=== PATIENT | female | born 1940 | race Caucasian/White ===

== ENCOUNTER 2021-06-08 07:58 | Day surgery (SDC) | payer MEDICARE, MEDICAID ==
[~2021-06-08] VITALS: Ht 152.4 cm; Wt 39.5 kg
--- NOTE | 2021-06-08 07:47 | PDOC1 ---
History and Physical Date of Admission Date of Admission DATE: 06/08/21 TIME: 07:44 Identification/Chief Complaint Chief Complaint Abdominal pain right upper quadrant Source Source: Chart review, Patient History of Present Illness History of Present Illness 81-year-old female with complaints of epigastric and abdominal pain right upper quadrant usually worse after eating occasionally nausea. Recent CT scan showed gallbladder polyp with small stones HIDA scan showed ejection fraction of only 8% Past Medical History Cardiovascular: No pertinent hx Pulmonary: No pertinent hx GI: Diverticulosis, GERD Hepatobiliary: No pertinent hx Psych: Anxiety Musculoskeletal: Osteoarthritis Rheumatologic: No pertinent hx Infectious disease: No pertinent hx ENT: No pertinent hx Renal/: No pertinent hx Endocrine: No pertinent hx, Hypothyroidism Dermatology: No pertinent hx Past Surgical History Past Surgical History: Cataract Removal Family History Family History: No Significant Social History Smoke: No ALCOHOL: none Drugs: None Current Medications Current Medications Current Medications Fentanyl Citrate (Fentanyl 2ml Vial) 25 mcg PRN Q5MIN PRN IVP MILD PAIN 1-3; Start 06/08/21 at 06:00; Stop 06/09/21 at 05:59 Fentanyl Citrate (Fentanyl 2ml Vial) 50 mcg PRN Q5MIN PRN IVP MODERATE PAIN 4- 6; Start 06/08/21 at 06:00; Stop 06/09/21 at 05:59 Morphine Sulfate (Morphine Sulfate) 1 mg PRN Q10MIN PRN IVP SEVERE PAIN 7-10; Start 06/08/21 at 06:00; Stop 06/09/21 at 05:59 Ringer's Solution 1,000 ml @ 30 mls/hr Q24H IV ; Start 06/08/21 at 06:00; Stop 06/08/21 at 17:59 Hydromorphone HCl (Dilaudid) 0.5 mg PRN Q10MIN PRN IVP SEVERE PAIN 7-10, 2nd CHOICE; Start 06/08/21 at 06:00; Stop 06/09/21 at 05:59 Prochlorperazine Edisylate (Compazine) 5 mg PACU PRN PRN IVP NAUSEA, MRX1; Start 06/08/21 at 06:00; Stop 06/09/21 at 05:59 Acetaminophen (Tylenol) 1,000 mg 1X PREOP PRN PO PRIOR TO PROCEDURE; Start 06/08/21 at 06:00 Cefazolin Sodium (Ancef) 1 gm 1X PREOP PRN IVP PRIOR TO PROCEDURE; Start 06/08/21 at 08:00 Allergies Allergies: Coded Allergies: No Known Drug Allergies (Unverified , 06/06/21) ROS Gastrointestinal: Yes Nausea, Yes Abdominal Pain Physical Exam General: Alert, Oriented X3, Cooperative, No acute distress HEENT: Atraumatic, EOMI Lungs: Clear to auscultation, Normal air movement Heart: RRR, no murmurs Abdomen: Normal bowel sounds, Soft, Other (Tender to palpation right upper) Rectal Exam: not examined Extremities: No edema Skin: No significant lesion Neuro: Normal speech Psych/Mental Status: Mental status NL VTE Prophylaxis Ordered VTE Prophylaxis Devices: Yes VTE Pharmacological Prophylaxi: Contraindicated Assessment/Plan Assessment/Plan Gallbladder polyps with low ejection fraction biliary dyskinesia plan laparoscopic cholecystectomy Justifications for Admission Other Justification MANDI DIALLO MD Jun 08, 2021 07:47
[~2021-06-08 07:58] MED LIST: ACETAMINOPHEN 500 MG TABLET PO PRN; HYDROmorphone 2 MG/ML INJ. IVP PRN; IV RINGERS,LACTATED 1000ML 1,000 ML IV SCH; PROCHLORPERAZINE 10 MG/2 ML VIAL. IVP PRN; fentaNYL PF VIAL 100 MCG/2 ML VIAL IVP PRN
[2021-06-08] MEDS ORDERED: ceFAZolin SODIUM IV Push 1 GM VIAL. IVP PRN (08:00)
[2021-06-08] MEDS ORDERED: SUGAMMADEX SODIUM 200 MG/2 ML VIAL. IVP ONE (08:15)
--- NOTE | 2021-06-08 08:35 | PDOC4 ---
Operative Note Operative Note Date: 06/08/2021 at 8:32 AM Preoperative diagnosis: Biliary dyskinesia Postoperative diagnosis: Same Procedure: Laparoscopic cholecystectomy with fluorescent cholangiography Surgeon: Brijesh Specimen: Gallbladder Dictation: Patient is 81-year-old female with right upper quadrant abdominal pain CT scan showing gallbladder polyp with some stones as well as a HIDA scan showed ejection fraction of only 8%. Procedure of laparoscopic cholecystectomy was explained to the patient in detail risk-benefit were also discussed including bleeding infection injury to intra-abdominal contents possible necessitating further open operations alternatives to this procedure also discussed with the patient who seemed to understand and gave both verbal and written consent to have the procedure performed. Patient was taken to the operating room placed in the supine position general anesthesia was initiated once patient was sleeping intubated her abdomen was prepped and draped usual sterile fashion using ChloraPrep. An area just below the umbilicus was injected with quarter percent Marcaine with epinephrine incision was made 11 blade scalpel and a varies needle was placed within the abdomen creating pneumoperitoneum once this was complete the millimeter port was placed and a 5 mm camera was placed within the abdomen which was inspected no other abnorm alities were noted. 5 mm ports placed in the epigastrium and 5 mm ports placed in the right midabdomen a 5 mm port was placed in the right lateral abdomen all under direct visualization. The dome of the gallbladder is grasped retracted cephalad the infundibulum the gallbladder is grasped tract laterally exposing the triangle adherent tissues the triangle were taken down exposing the cystic duct and cystic artery. Fluorescein cholangiography was performed which showed good dye within the cystic duct common bile duct with no evidence of obstruction. The cystic duct was doubly clipped and transected the cystic artery was similarly clipped and transected the gallbladder is taken off the liver with hook electrocautery placed in Endo Catch bag moved umbilicus right upper quadrant was irrigated and suctioned dry hemostasis deemed be appropriate the pneumoperitoneum was reduced all ports were removed the fascial defect at the umbilicus was closed with a [id number] 0 Vicryl suture and the skin was reapproximated all port sites for septic and Monocryl Mastisol Steri-Strips and island dressings were applied. Patient was awakened and extubated in the operating room taken to recovery in stable condition all sponge instrument needle counts listed as correct estimated blood loss 5 mL MANDI DIALLO MD Jun 08, 2021 08:35
[2021-06-08] MEDS ORDERED: OXYC-325 PO (08:37)
--- NOTE | 2021-06-08 08:38 | DISCH ---
DISCHARGE INSTRUCTIONS Condition on Discharge Condition on Discharge: Stable Activity After Discharge Activity Instructions for Disc: Avoid exertion Other activity instructions: No lifting more than 20 pounds for 2 weeks Diet after Discharge Diet after Discharge: Low Fat Wound Incision Care Other wound/incision instructi: May shower in 24 hours Contacting the after DC Call your doctor for: If your condition worsens Follow-Up Follow up with: Dr. Diallo in 2 weeks MANDI DIALLO MD Jun 08, 2021 08:38
[2021-06-08] MEDS: fentaNYL PF VIAL 100 MCG/2 ML VIAL IVP PRN ×3 (08:53→09:16)
[2021-06-08] MEDS ORDERED: KETOROLAC 30 MG/ML VIAL. IVP ONE (09:15)
[2021-06-08] MEDS ORDERED: oxyCODONE/APAP 5/325 1 TAB TABLET PO ONE (09:30)
[2021-06-08] MEDS: MORPHINE SULFATE 2 MG/ML INJ. IVP PRN ×2 (09:36→09:58)
[2021-06-08 09:38] VITALS: BP 127/39
--- NOTE | 2021-06-11 18:06 | PATHOLOGY ---
[facility] Accession Number: [id number] . 01 Material submitted: . gallbladder - GALLBLADDER AND CONTENTS . 01 Clinical history: . BILIARY DYSKINESIA LAP ALVIN . 02 Diagnosis: Gallbladder, laparoscopic cholecystectomy: - Chronic cholecystitis. (JPM:zacarias; 06/11/2021) P 06/11/2021 1212 Local . 02 Comment: There are no calculi identified within the gallbladder lumen or specimen container. There is no evidence of malignancy. (JPM:zacarias; 06/11/2021) . 02 Electronically signed: . Jj Gar MD, Pathologist NPI- [id number] . 01 Gross description: . Fixative: Formalin Labeled: Gallbladder Specimen received: Previously disrupted gallbladder Dimensions: 5.5 x 2.3 x 2.2 cm Serosa: Green-dennis, smooth Lymph node: Not identified Mucosa: Velvety, bile-stained Average wall thickness: 0.2 cm Calculi: None present Abnormalities: None identified . A1- Salesperson Neckties body, fundus, and the cystic duct margin. ([facility]; 06/08/2021) NRI/NRI 06/08/2021 1822 Local . 02 Pathologist provided ICD-10: K81.1 . 02 CPT . 491244 Specimen Comment: A courtesy copy of this report has been sent to [phone], [phone] Specimen Comment: [id number] Specimen Comment: Report sent to / DR RAMACHANDRAN Performed at: 01 [facility] [address], [place] [id number] MD Remy Tillman MD Phone: [phone] Performed at: 02 [facility] [address] [place], [place] [id number] MD Jj Gar MD Phone: [phone]
== END 2021-06-08 10:45 | disposition home or self-care (01) ==
LOC: SURG 07:58
PROVIDERS: ATTEND Surgery
DX: K81.1 Chronic cholecystitis (principal); K82.8 Other specified diseases of gallbladder; K21.9 Gastro-esophageal reflux disease without esophagitis; M19.90 Unspecified osteoarthritis, unspecified site; E03.9 Hypothyroidism, unspecified; F41.9 Anxiety disorder, unspecified; Z87.891 Personal history of nicotine dependence; Z79.899 Other long term (current) drug therapy; Z98.890 Other specified postprocedural states
CPT/HCPCS: 47563; J3490; A4657; A4930

== ENCOUNTER 2021-06-10 01:43 | Inpatient (IN) | payer MEDICARE, MEDICAID ==
[2021-06-10] VITALS (7 sets, daily range): BP systolic 117–139; BP diastolic 52–64
[~2021-06-10] VITALS: Ht 152.4 cm; Wt 38.5 kg
[~2021-06-10 01:43] MED LIST changes: -ACETAMINOPHEN 500 MG TABLET PO PRN; -HYDROmorphone 2 MG/ML INJ. IVP PRN; -IV RINGERS,LACTATED 1000ML 1,000 ML IV SCH; +OXYC-325 PO; -PROCHLORPERAZINE 10 MG/2 ML VIAL. IVP PRN; -fentaNYL PF VIAL 100 MCG/2 ML VIAL IVP PRN
[2021-06-10] MEDS ORDERED: LIOT5TAB4 PO (02:27)
[2021-06-10] MEDS ORDERED: LEVO50TA5 PO (02:27)
[2021-06-10] MEDS ORDERED: Vitamin D3 PO (02:27)
[2021-06-10] MEDS ORDERED: BISACODYL 10 MG SUPP.RECT. PR PRN (03:00)
[2021-06-10] MEDS ORDERED: IV RINGERS,LACTATED 1000ML 1,000 ML IV SCH (03:00)
[2021-06-10] MEDS ORDERED: ACETAMINOPHEN 650 MG SUPP.RECT. PR PRN (03:00)
[2021-06-10] MEDS ORDERED: fentaNYL PF VIAL 100 MCG/2 ML VIAL IVP PRN (03:00)
[2021-06-10] MEDS ORDERED: ONDANSETRON PF 4 MG/2 ML VIAL. IVP PRN (03:00)
--- NOTE | 2021-06-10 03:00 | NUR ---
ADMIT NOTE The patient, FILIBERTO KENT, 81 y/o, F admitted by KELLEN DELGADO MD, was given written information regarding hospital policies, unit procedures and contact persons. Patient transferred via EMS from [facility] and orientated to room. Patient's allergies, preferred pharmacy and home medications verified, and admit packet reviewed. notified of patient admission and orders rcvd. All patient's belongings left in room and plan of care discussed. Patient now in bed, bed in lowest/locked position, call light within reach and bed alarm active; no needs voiced by patient at this time.
[2021-06-10 07:55] LABS: ALBUMIN/GLOBULIN RATIO 0.8 (1.0-1.7); CALCIUM 9.1 mg/dL (8.5-10.1); CREATININE 1.2 mg/dL (0.6-1.0); GFR 43.1; POTASSIUM 4.9 mmol/L (3.5-5.1); TOTAL BILIRUBIN 0.6 mg/dL (0.2-1.0); TOTAL PROTEIN 6.6 g/dL (6.4-8.2)
[2021-06-10 08:21] LABS: BASO # 0.1 x10^3/uL (0.0-0.2); BASO % 1 % (0-3); EOS # 0.1 x10^3/uL (0.0-0.7); EOS % 1 % (0-3); HEMATOCRIT 35.4 % (36.0-47.0); HEMOGLOBIN 11.5 g/dL (12.0-15.5); LYMPH # 1.1 x10^3/uL (1.0-4.8); LYMPH % 16 % (24-48); MEAN CORPUSCULAR HEMOGLOBIN 30 pg (25-35); MEAN CORPUSCULAR HGB CONC 32 g/dL (31-37); MEAN CORPUSCULAR VOLUME 93 fL (79-100); MONO # 0.6 x10^3/uL (0.0-1.1); MONO % 8 % (0-9); NEUT # 5.5 x10^3/uL (1.8-7.7); NEUT % 75 % (31-73); PLATELET COUNT 284 x10^3/uL (140-400); RED BLOOD COUNT 3.81 x10^6/uL (3.50-5.40); RED CELL DISTRIBUTION WIDTH 13.7 % (11.5-14.5); WHITE BLOOD COUNT 7.3 x10^3/uL (4.0-11.0)
[2021-06-10] MEDS: HEPARIN for SUB-Q USE 5,000 UNIT/ML VIAL. SQ SCH ×2 (09:08→20:21)
--- NOTE | 2021-06-10 09:13 | PDOC2 ---
CONSULT Date of Consult Date of Consult DATE: 06/10/21 TIME: 09:10 History of Present Illness Reason for Visit: The patient is an 81-year-old female who underwent a laparoscopic cholecystectomy by Dr. Coley on June 08, 2021 at [facility]. She was discharged and returned to [facility] emergency room yesterday due to abdominal pain. She states the pain was in the mid abdomen and right upper quadrant. While there a CT scan was performed. This noted pneumoperitoneum. She was transferred down to [place] for further evaluation. Since her admission she does report feeling better with less pain. Past Medical History Cardiovascular: No pertinent hx Pulmonary: No pertinent hx GI: Diverticulosis, GERD Hepatobiliary: No pertinent hx Psych: Anxiety Musculoskeletal: Osteoarthritis Rheumatologic: No pertinent hx Infectious disease: No pertinent hx Renal/: No pertinent hx Endocrine: No pertinent hx, Hypothyroidism Past Surgical History Past Surgical History Laparoscopic cholecystectomy Past Surgical History: Cataract Removal Family History Family History: No Significant Social History ALCOHOL: none Drugs: None Current Medications Current Medications Current Medications Acetaminophen (Tylenol Supp) 650 mg PRN Q6HRS PRN AR MILD PAIN / TEMP > 100.3' F; Start 06/10/21 at 03:00 Bisacodyl (Dulcolax Supp) 10 mg PRN DAILY PRN AR CONSTIPATION; Start 06/10/21 at 03:00 Ondansetron HCl (Zofran) 4 mg PRN Q4HRS PRN IVP NAUSEA/VOMITING; Start 06/10/21 at 03:00 Fentanyl Citrate (Fentanyl 2ml Vial) 25 mcg PRN Q3HRS PRN IVP SEVERE PAIN 7-10; Start 06/10/21 at 03:00 Ringer's Solution 1,000 ml @ 75 mls/hr [id number] IV Last administered on at 04:04; Start 06/10/21 at 03:00; Stop 06/10/21 at 16:19 Heparin Sodium (Porcine) (Heparin Sodium) 5,000 unit Q12HR SQ Last administered on 06/10/21at 09:08; Start 06/10/21 at 09:00 Active Scripts Active Percocet 5-325 mg Tablet (Oxycodone HCl/Acetaminophen) 1 Each Tablet 1 Tab PO Q6HRS PRN MDD 4 Tablet(s) 5 Days Reported [Vitamin D3] 5,000 Units PO Q2WKS Liothyronine Sodium 5 Mcg Tablet 5 Mcg PO DAILYAC Levothyroxine Sodium 50 Mcg Tablet 50 Mcg PO DAILYAC Allergies Allergies: Coded Allergies: No Known Drug Allergies (Unverified , 06/06/21) ROS General: No: Chills, Night Sweats, Fatigue, Malaise, Appetite, Other PSYCHOLOGICAL ROS: No: Anxiety, Behavioral Disorder, Concentration difficultie, Decreased libido, Depression, Disorientation, Hallucinations, Hostility, Irritablity, Memory difficulties, Mood Swings, Obsessive thoughts, Physical abuse, Sexual abuse, Sleep disturbances, Suicidal ideation, Other Eyes: No Blurry vision, No Decreased vision, No Double vision, No Dry eyes, No Excessive tearing, No Eye Pain, No Itchy Eyes, No Loss of vision, No Photophobia, No Scotomata, No Uses contacts, No Uses glasses, No Other HEENT: No: Heacaches, Visual Changes, Hearing change, Nasal congestion, Nasal discharge, Oral lesions, Sinus pain, Sore Throat, Epistaxis, Sneezing, Snoring, Tinnitus, Vertigo, Vocal changes, Other ALLERGY AND IMMUNOLOGY: No: Hives, Insect Bite Sensitivity, Itchy/Watery Eyes, Nasal Congestion, Post Nasal Drip, Seasonal Allergies, Other Hematological and Lymphatic: No: Bleeding Problems, Blood Clots, Blood Transfusions, Brusing, Night Sweats, Pallor, Swollen Lymph Nodes, Other Cardiovascular: No Chest Pain, No Palpitations, No Orthopnea, No Paroxysmal Noc. Dyspnea, No Edema, No Lt Headedness, No Other Gastrointestinal: Yes Abdominal Pain Genitourinary: No Dysuria, No Frequency, No Incontinence, No Hematuria, No Retention, No Discharge, No Urgency, No Pain, No Flank Pain, No Other, No , No , No , No , No , No , No Musculoskeletal: No Gait Disturbance, No Joint Pain, No Joint Stiffness, No Joint Swelling, No Muscle Pain, No Muscular Weakness, No Pain In:, No Swelling In:, No Other Neurological: No Behavorial Changes, No Bowel/Bladder ControlChng, No Co nfusion, No Dizziness, No Gait Disturbance, No Headaches, No Impaired Coord/balance, No Memory Loss, No Numbness/Tingling, No Seizures, No Speech Problems, No Tremors, No Visual Changes, No Weakness, No Other Skin: No Dry Skin, No Eczema, No Hair Changes, No Lumps, No Mole Changes, No Mottling, No Nail Changes, No Pruritus, No Rash, No Skin Lesion Changes, No Other, No Acne Physical Exam General: Alert, Oriented X3, Cooperative, No acute distress HEENT: Atraumatic Lungs: Clear to auscultation Abdomen: Soft (Mildly tender to palpation at her incisions. Otherwise unremarkable) Extremities: No clubbing, No cyanosis Skin: No rashes Neuro: Normal speech Psych/Mental Status: Mental status NL Vitals VITALS Vital Signs Date Time Temp Pulse Resp B/P (MAP) Pulse Ox O2 Delivery O2 Flow Rate FiO2 06/10/21 07:00 97.7 88 16 128/60 (82) 96 Room Air 97.7 Labs Labs Laboratory Tests Test 06/10/21 07:00 White Blood Count 7.3 x10^3/uL (4.0-11.0) Red Blood Count 3.81 x10^6/uL (3.50-5.40) Hemoglobin 11.5 g/dL (12.0-15.5) Hematocrit 35.4 % (36.0-47.0) Mean Corpuscular Volume 93 fL (79-100) Mean Corpuscular Hemoglobin 30 pg (25-35) Mean Corpuscular Hemoglobin Concent 32 g/dL (31-37) Red Cell Distribution Width 13.7 % (11.5-14.5) Platelet Count 284 x10^3/uL (140-400) Neutrophils (%) (Auto) 75 % (31-73) Lymphocytes (%) (Auto) 16 % (24-48) Monocytes (%) (Auto) 8 % (0-9) Eosinophils (%) (Auto) 1 % (0-3) Basophils (%) (Auto) 1 % (0-3) Neutrophils # (Auto) 5.5 x10^3/uL (1.8-7.7) Lymphocytes # (Auto) 1.1 x10^3/uL (1.0-4.8) Monocytes # (Auto) 0.6 x10^3/uL (0.0-1.1) Eosinophils # (Auto) 0.1 x10^3/uL (0.0-0.7) Basophils # (Auto) 0.1 x10^3/uL (0.0-0.2) Sodium Level 142 mmol/L (136-145) Potassium Level 4.9 mmol/L (3.5-5.1) Chloride Level 105 mmol/L (98-107) Carbon Dioxide Level 24 mmol/L (21-32) Anion Gap 13 (6-14) Blood Urea Nitrogen 32 mg/dL (7-20) Creatinine 1.2 mg/dL (0.6-1.0) Estimated GFR (Cockcroft-Gault) 43.1 BUN/Creatinine Ratio 27 (6-20) Glucose Level 66 mg/dL (70-99) Calcium Level 9.1 mg/dL (8.5-10.1) Total Bilirubin 0.6 mg/dL (0.2-1.0) Aspartate Amino Transf (AST/SGOT) 31 U/L (15-37) Alanine Aminotransferase (ALT/SGPT) 27 U/L (14-59) Alkaline Phosphatase 53 U/L (46-116) Total Protein 6.6 g/dL (6.4-8.2) Albumin 3.0 g/dL (3.4-5.0) Albumin/Globulin Ratio 0.8 (1.0-1.7) Laboratory Tests Test 06/10/21 07:00 White Blood Count 7.3 x10^3/uL (4.0-11.0) Red Blood Count 3.81 x10^6/uL (3.50-5.40) Hemoglobin 11.5 g/dL (12.0-15.5) Hematocrit 35.4 % (36.0-47.0) Mean Corpuscular Volume 93 fL (79-100) Mean Corpuscular Hemoglobin 30 pg (25-35) Mean Corpuscular Hemoglobin Concent 32 g/dL (31-37) Red Cell Distribution Width 13.7 % (11.5-14.5) Platelet Count 284 x10^3/uL (140-400) Neutrophils (%) (Auto) 75 % (31-73) Lymphocytes (%) (Auto) 16 % (24-48) Monocytes (%) (Auto) 8 % (0-9) Eosinophils (%) (Auto) 1 % (0-3) Basophils (%) (Auto) 1 % (0-3) Neutrophils # (Auto) 5.5 x10^3/uL (1.8-7.7) Lymphocytes # (Auto) 1.1 x10^3/uL (1.0-4.8) Monocytes # (Auto) 0.6 x10^3/uL (0.0-1.1) Eosinophils # (Auto) 0.1 x10^3/uL (0.0-0.7) Basophils # (Auto) 0.1 x10^3/uL (0.0-0.2) Sodium Level 142 mmol/L (136-145) Potassium Level 4.9 mmol/L (3.5-5.1) Chloride Level 105 mmol/L (98-107) Carbon Dioxide Level 24 mmol/L (21-32) Anion Gap 13 (6-14) Blood Urea Nitrogen 32 mg/dL (7-20) Creatinine 1.2 mg/dL (0.6-1.0) Estimated GFR (Cockcroft-Gault) 43.1 BUN/Creatinine Ratio 27 (6-20) Glucose Level 66 mg/dL (70-99) Calcium Level 9.1 mg/dL (8.5-10.1) Total Bilirubin 0.6 mg/dL (0.2-1.0) Aspartate Amino Transf (AST/SGOT) 31 U/L (15-37) Alanine Aminotransferase (ALT/SGPT) 27 U/L (14-59) Alkaline Phosphatase 53 U/L (46-116) Total Protein 6.6 g/dL (6.4-8.2) Albumin 3.0 g/dL (3.4-5.0) Albumin/Globulin Ratio 0.8 (1.0-1.7) Assessment/Plan Assessment/Plan 81-year-old female status post laparoscopic cholecystectomy. Her abdominal pain seems likely incisional and it has improved since its onset. The CT scan find ings of pneumoperitoneum are likely in accordance with recent laparoscopy. Her laboratory evaluation is unremarkable and her abdominal exam is fairly benign. Plan to start a regular diet and I believe discharge today is reasonable. PARTHA GALINDO MD Jun 10, 2021 09:13
--- NOTE | 2021-06-10 10:26 | PDOC ---
GENERAL General: History and physical [id number] VITAL SIGNS Vital Signs/I&O: Vital Signs Date Time Temp Pulse Resp B/P (MAP) Pulse Ox O2 Delivery O2 Flow Rate FiO2 06/10/21 07:00 97.7 88 16 128/60 (82) 96 Room Air 97.7 I & O 06/09/21 06/09/21 06/10/21 14:59 22:59 06:59 Intake Total 0 ml Balance 0 ml ALLERGIES Allergies: Allergies Coded Allergies Type Severity Reaction Last Updated Verified No Known Drug Allergies 06/06/21 No MEDS Medications: Current Medications Medications (Trade) Dose Ordered Sig/Jean Carlos Route PRN Reason Start Time Stop Time Status Last Admin Dose Admin Ringer's Solution 1,000 ml @ 75 mls/hr [id number] IV 06/10/21 03:00 06/10/21 16:19 06/10/21 04:04 Heparin Sodium (Porcine) (Heparin Sodium) 5,000 unit Q12HR SQ 06/10/21 09:00 06/10/21 09:08 LAB Lab: Laboratory Tests Test 06/10/21 07:00 White Blood Count 7.3 x10^3/uL (4.0-11.0) Red Blood Count 3.81 x10^6/uL (3.50-5.40) Hemoglobin 11.5 g/dL (12.0-15.5) L Hematocrit 35.4 % (36.0-47.0) L Mean Corpuscular Volume 93 fL (79-100) Mean Corpuscular Hemoglobin 30 pg (25-35) Mean Corpuscular Hemoglobin Concent 32 g/dL (31-37) Red Cell Distribution Width 13.7 % (11.5-14.5) Platelet Count 284 x10^3/uL (140-400) Neutrophils (%) (Auto) 75 % (31-73) H Lymphocytes (%) (Auto) 16 % (24-48) L Monocytes (%) (Auto) 8 % (0-9) Eosinophils (%) (Auto) 1 % (0-3) Basophils (%) (Auto) 1 % (0-3) Neutrophils # (Auto) 5.5 x10^3/uL (1.8-7.7) Lymphocytes # (Auto) 1.1 x10^3/uL (1.0-4.8) Monocytes # (Auto) 0.6 x10^3/uL (0.0-1.1) Eosinophils # (Auto) 0.1 x10^3/uL (0.0-0.7) Basophils # (Auto) 0.1 x10^3/uL (0.0-0.2) Sodium Level 142 mmol/L (136-145) Potassium Level 4.9 mmol/L (3.5-5.1) Chloride Level 105 mmol/L (98-107) Carbon Dioxide Level 24 mmol/L (21-32) Anion Gap 13 (6-14) Blood Urea Nitrogen 32 mg/dL (7-20) H Creatinine 1.2 mg/dL (0.6-1.0) H Estimated GFR (Cockcroft-Gault) 43.1 BUN/Creatinine Ratio 27 (6-20) H Glucose Level 66 mg/dL (70-99) L Calcium Level 9.1 mg/dL (8.5-10.1) Total Bilirubin 0.6 mg/dL (0.2-1.0) Aspartate Amino Transferase (AST) 31 U/L (15-37) Alanine Aminotransferase (ALT) 27 U/L (14-59) Alkaline Phosphatase 53 U/L (46-116) Total Protein 6.6 g/dL (6.4-8.2) Albumin 3.0 g/dL (3.4-5.0) L Albumin/Globulin Ratio 0.8 (1.0-1.7) L Laboratory Tests 06/10/21 07:00 Laboratory Tests 06/10/21 07:00 Justifications for Admission Abdominal Pain Indications Is patient in severe pain?: Yes Justification for admission: Patient has severe pain that requires (parenteral analgesic-please state analgesics and route) at least every 4 hours necessitating inpatient level of care. Is NPO status required?: Yes Justification for admission: Patient may require to be NPO for greater 24hours making it medically necessary to manage patient as inpatient. Other Justification CAITY GIVENS MD Jun 10, 2021 10:26
--- NOTE | 2021-06-10 10:29 | DISCH ---
DISCHARGE INSTRUCTIONS Condition on Discharge Condition on Discharge: Stable Activity After Discharge Activity Instructions for Disc: Resume previous activity, Avoid exertion Diet after Discharge Diet after Discharge: Low Fat Contacting the DR. after DC Call your doctor for: If your condition worsens CAITY GIVENS MD Jun 10, 2021 10:29
--- NOTE | 2021-06-10 10:48 | HP ---
DATE OF SERVICE: 06/10/2021 ADMIT DATE: 06/10/2021 HISTORY OF PRESENT ILLNESS: This patient is an 81-year-old woman who is a continuity outpatient of Dr. Kishan Chang who uses the [facility] hospitalist here at [facility], I am rounding for them this weekend. The patient was discharged the same day after cholecystectomy 48 hours ago and went home. Tells me that she felt fine, but then yesterday as the day went on, she became more and more distended and had increasing abdominal pressure. She presented to [facility] where workup was notable for mild fever of 99.[address] abdomen and pelvis with moderate free intraperitoneal gas, which is consistent with the recent cholecystectomy. I am seeing the patient now about 12 hours after admission and she tells me she is feeling a little bit better. Her concern is that she is living alone and while her daughter is very helpful, she lives at [address] [place]. She is not sure that she can keep up with her hydration and activity to continue her recuperation. The patient denies any nausea or vomiting overnight. She has not had any stool since the surgery. She is passing gas. All other systems reviewed and negative. PAST MEDICAL HISTORY: Hypothyroidism. MEDICATIONS: Please see the medication reconciliation form. SOCIAL HISTORY: The patient is single. She lives in her own home. Her daughter who lives close by is her medical durable power of commonwealth attorney and does help her some. She does not usually require much help. She does not take any tobacco, alcohol or illicit drugs. FAMILY HISTORY: Reviewed in full and noncontributory to the present illness. PHYSICAL EXAMINATION: VITAL SIGNS: Reviewed since admission to [place] and is notable for that the patient has been afebrile. Blood pressure has been in the 120s/60s, heart rate is in the 70s-80s and regular. She is breathing comfortably and saturating 97% on room air. GENERAL: The patient is a frail, thin 81-year-old woman who appears her stated age, in no acute distress. Of note, the patient tells me that she has always been on the very low end of normal weight. Her body mass index here is clocking in as underweight. HEENT: Unremarkable. NECK: Soft and supple. No adenopathy or thyromegaly noted. CHEST: Clear to auscultation. HEART: S1, S2 normal. Regular rate and rhythm. No murmurs or gallops are noted. ABDOMEN: Notable for mild distention. She is tender in her lower abdomen. Surgical dressings are dry, clean, and intact. No masses or organomegaly noted. EXTREMITIES: Unremarkable for acute abnormality. LABORATORY AND OTHER STUDIES: Hemoglobin 11.5, white blood cell count 7.5, platelet count is 284. Chemistry panel is notable for a creatinine of 1.2. Electrolytes are unremarkable. Liver function tests are normal. CT abdomen and pelvis at [facility] is notable for moderate free intraperitoneal gas. No biliary ductal dilation is noted. Cholecystectomy clips are seen. Pancreas, spleen, and adrenal glands are unremarkable. Kidneys are mildly atrophic. Fluid distention of the small bowel without evidence for bowel obstruction. ASSESSMENT AND PLAN/IMPRESSION: An 81-year-old woman who is now postop day #2 from a cholecystectomy here with Dr. Coley on Friday. Discharged home several hours after her procedure. She is feeling puny and is concerned that she will go home and clinically worsen. I certainly agree with her that at her age, we need to be extra careful about creating a robust discharge plan so that we avoid readmission. The patient is agreeable to reassessing later on today after eating lunch and dinner and trying to be up and moving about the unit. Her daughter is available and checks up on her, though daughter is busy with caregiving for her grandchildren as well. Observation status is most appropriate as we anticipate a length of stay of 1-2 midnights while we work this through. The patient is using sequential compression devices for deep venous thrombosis prophylaxis. The patient is a full code and daughter is listed as the surrogate decision maker. JEAN-PIERRE PEREZ: Reyna TID: [id number]
[2021-06-10] MEDS: LEVOTHYROXINE 50 MCG TABLET PO SCH (11:38)
[2021-06-11 03:00] VITALS: BP 121/58
[2021-06-11] MEDS: LEVOTHYROXINE 50 MCG TABLET PO SCH (06:01)
[2021-06-11 06:47] LABS: BASO % 0 % (0-3); EOS % 1 % (0-3); HEMATOCRIT 33.5 % (36.0-47.0); LYMPH # 0.4 x10^3/uL (1.0-4.8); LYMPH % 8 % (24-48); MEAN CORPUSCULAR HEMOGLOBIN 30 pg (25-35); MEAN CORPUSCULAR HGB CONC 33 g/dL (31-37); MEAN CORPUSCULAR VOLUME 93 fL (79-100); MONO # 0.4 x10^3/uL (0.0-1.1); MONO % 7 % (0-9); NEUT # 4.6 x10^3/uL (1.8-7.7); NEUT % 84 % (31-73); PLATELET COUNT 245 x10^3/uL (140-400); RED BLOOD COUNT 3.62 x10^6/uL (3.50-5.40); RED CELL DISTRIBUTION WIDTH 13.6 % (11.5-14.5); WHITE BLOOD COUNT 5.5 x10^3/uL (4.0-11.0)
[2021-06-11 06:59] LABS: ALBUMIN 2.6 g/dL (3.4-5.0); ALBUMIN/GLOBULIN RATIO 0.7 (1.0-1.7); CALCIUM 8.6 mg/dL (8.5-10.1); CREATININE 1.1 mg/dL (0.6-1.0); GFR 47.7; POTASSIUM 4.7 mmol/L (3.5-5.1); TOTAL BILIRUBIN 0.5 mg/dL (0.2-1.0); TOTAL PROTEIN 6.3 g/dL (6.4-8.2)
[2021-06-11 07:00] VITALS: BP 112/46
[2021-06-11] MEDS: HEPARIN for SUB-Q USE 5,000 UNIT/ML VIAL. SQ SCH (08:24)
--- NOTE | 2021-06-11 10:25 | SNU/HH DC ---
DISCHARGE WITH HOME HEALTH DISCHARGE INFORMATION: Condition on Discharge: Stable CODE STATUS: Code Status: Full HOME HEALTH: Face to Face: I certify this patient is under my care and that I, or a nurse practitioner or physician's medicine assistant working with me, had a face to face encounter that meets the physician face to face encounter requirements with this patient on []. Medical Complications: Other (Postop laparoscopic cholecystectomy) Fpc For: Assess & Educate Safety, clinical biochemist For Eval/Treatment: Yes Physical Therapy For: Evalulation/Treatment Occupational Therapy For: Evaluation/Treatment Home Health Aide For: Self-care QUEBRACHO TANNER For: Community Resources Pt Meets Homebound Status: Poor coordination w/ amb. POST DISCHARGE ORDERS: Activity Instructions for Disc: Resume previous activity, Avoid exertion DIET AFTER DISCHARGE: Cardiac CERTIFICATION STATEMENT: Certification Statement: Certification Statement: Based on the above finding, I certify that this patient is confined to the home and needs intermittent senior care care, physical therapy and/or speech therapy, or continues to need occupational therapy.~ This patient is under my care, and I have initiated the establishment of the plan of care.~ This patient will be followed by myself or a community physician who will periodically review the plan of care. Home Meds Active Scripts Oxycodone HCl/Acetaminophen (Percocet 5-325 mg Tablet) 1 Each Tablet, 1 TAB PO Q6HRS PRN for PAIN MDD 4 Tablet(s) for 5 Days, #20 TAB 0 Refills Prov:MANDI DIALLO MD 06/08/21 Reported Medications Liothyronine Sodium (LIOTHYRONINE SODIUM) 5 Mcg Tablet, 5 MCG PO DAILYAC for THYROID SUPPLEMENT, TAB 06/10/21 Levothyroxine Sodium (LEVOTHYROXINE SODIUM) 50 Mcg Tablet, 50 MCG PO DAILYAC for THYROID SUPPLEMENT, #30 TAB 0 Refills 06/10/21 Discontinued Reported Medications [Vitamin D3] No Conflict Check, 5000 UNITS PO Q2WKS for SUPPLEMENT 06/10/21 JULIETA ALMANZAR III DO Jun 11, 2021 10:25
[2021-06-11 10:55] VITALS: BP 102/45
[2021-06-11] MEDS ORDERED: LOPERAMIDE 2 MG CAPSULE PO PRN (11:30)
--- NOTE | 2021-06-11 11:30 | PDOC ---
[employer] PROGRESS NOTE Date of Service DOS: DATE: 06/11/21 TIME: 11:23 Chief Complaint Chief Complaint S/P Lap giancarlo Diarrhea Hypothyroidism History of Present Illness History of Present Illness This patient is an 81-year-old woman who is a continuity outpatient of Dr. Kishan Chang who uses the [facility] hospitalist here at [facility], I am rounding for them this weekend. The patient was discharged the same day after cholecystectomy 48 hours ago and went home. Tells me that she felt fine, but then yesterday as the day went on, she became more and more distended and had increasing abdominal pressure. She presented to [facility] where workup was notable for mild fever of 99.[address] abdomen and pelvis with moderate free intraperitoneal gas, which is consistent with the recent cholecystectomy. I am seeing the patient now about 12 hours after admission and she tells me she is feeling a little bit better. Her concern is that she is living alone and while her daughter is very helpful, she lives at [address] [place]. She is not sure that she can keep up with her hydration and activity to continue her recuperation. The patient denies any nausea or vomiting overnight. She has not had any stool since the surgery. She is passing gas. All other systems reviewed and negative. 06/11/21 Patient seen and examined. Patient does not want to go to a nursing facility, she wants to go home. Preferably tomorrow as she still has diarrhea. Chart Reviewed Discussed with RN Vitals/I&O Vitals/I&O: Vital Signs Date Time Temp Pulse Resp B/P (MAP) Pulse Ox O2 Delivery O2 Flow Rate FiO2 06/11/21 10:55 98.2 70 17 102/45 (64) 95 Room Air 98.2 I & O 06/10/21 06/10/21 06/11/21 15:00 23:00 07:00 Output Total 60 ml Balance -60 ml Physical Exam General: Alert, Oriented X3, Cooperative, No acute distress Abdomen: Soft (Mildly tender to palpation at her incisions. Otherwise unremarkable) Extremities: No clubbing, No cyanosis Skin: No rashes Labs Labs: Laboratory Tests Test 06/11/21 05:50 White Blood Count 5.5 x10^3/uL (4.0-11.0) Red Blood Count 3.62 x10^6/uL (3.50-5.40) Hemoglobin 11.0 g/dL (12.0-15.5) Hematocrit 33.5 % (36.0-47.0) Mean Corpuscular Volume 93 fL (79-100) Mean Corpuscular Hemoglobin 30 pg (25-35) Mean Corpuscular Hemoglobin Concent 33 g/dL (31-37) Red Cell Distribution Width 13.6 % (11.5-14.5) Platelet Count 245 x10^3/uL (140-400) Neutrophils (%) (Auto) 84 % (31-73) Lymphocytes (%) (Auto) 8 % (24-48) Monocytes (%) (Auto) 7 % (0-9) Eosinophils (%) (Auto) 1 % (0-3) Basophils (%) (Auto) 0 % (0-3) Neutrophils # (Auto) 4.6 x10^3/uL (1.8-7.7) Lymphocytes # (Auto) 0.4 x10^3/uL (1.0-4.8) Monocytes # (Auto) 0.4 x10^3/uL (0.0-1.1) Eosinophils # (Auto) 0.0 x10^3/uL (0.0-0.7) Basophils # (Auto) 0.0 x10^3/uL (0.0-0.2) Sodium Level 141 mmol/L (136-145) Potassium Level 4.7 mmol/L (3.5-5.1) Chloride Level 106 mmol/L (98-107) Carbon Dioxide Level 22 mmol/L (21-32) Anion Gap 13 (6-14) Blood Urea Nitrogen 34 mg/dL (7-20) Creatinine 1.1 mg/dL (0.6-1.0) Estimated GFR (Cockcroft-Gault) 47.7 BUN/Creatinine Ratio 31 (6-20) Glucose Level 81 mg/dL (70-99) Calcium Level 8.6 mg/dL (8.5-10.1) Total Bilirubin 0.5 mg/dL (0.2-1.0) Aspartate Amino Transf (AST/SGOT) 26 U/L (15-37) Alanine Aminotransferase (ALT/SGPT) 23 U/L (14-59) Alkaline Phosphatase 47 U/L (46-116) Total Protein 6.3 g/dL (6.4-8.2) Albumin 2.6 g/dL (3.4-5.0) Albumin/Globulin Ratio 0.7 (1.0-1.7) Assessment and Plan Assessmemt and Plan Assessment: S/P Lap giancarlo Diarrhea Hypothyroidism Plan: Start Imodium - 1 tab after each loose stool prn Home Meds DVT prophylaxis Full code Encourage PO intake Discharge to home health today Comment Review of Relevant I have reviewed the following items get (where applicable) has been applied. Justifications for Admission Abdominal Pain Indications Is patient in severe pain?: Yes Justification for admission: Patient has severe pain that requires (parenteral analgesic-please state analgesics and route) at least every 4 hours necessitating inpatient level of care. Is NPO status required?: Yes Justification for admission: Patient may require to be NPO for greater 24hours making it medically necessary to manage patient as inpatient. Other Justification JULIETA ALMANZAR III, DO Jun 11, 2021 11:30
--- NOTE | 2021-06-11 13:43 | NUR ---
SW following. Discussed with RN, pt from home alone (daughter lives nearby), room air, regular diet. Discharge order for home with home health. Pt accepted with [facility]. No further SW needs.
--- NOTE | 2021-06-11 14:43 | DS ---
DATE OF DISCHARGE: 06/11/2021 ADMITTING DIAGNOSES: Postop recent cholecystectomy with persistent pain and some diarrhea. DISCHARGE DIAGNOSES: Resolving diarrhea, resolving recent laparoscopic cholecystectomy, resolving pain, history of hypothyroidism. HOSPITAL COURSE: The patient is a pleasant, middle-aged female who had laparoscopic cholecystectomy on Friday. Basically, she presented because she had so much pain and some nausea and diarrhea. We admitted her for observation. This morning, she is doing well and wants to go home. She does have some persistent diarrhea, we are going to give her some Imodium. If she tolerates her food, this morning we will let her go home. DISPOSITION: Home. ACTIVITY: As tolerated. DIET: Low sodium. DISCHARGE MEDICATIONS: Please see the MRAD. Synthroid 50 a day, p.r.n. oxycodone and vitamin D. Total time 32 minutes. [facility] [place]: Maria Fernanda TID: [id number]
[2021-06-11 15:00] VITALS: BP 117/54
== END 2021-06-11 15:55 | disposition home health service (06) | DRG 392 ==
LOC: 4 NORTH 01:43
PROVIDERS: ADMIT Internal Medicine; ATTEND Internal Medicine
DX: K52.9 Noninfective gastroenteritis and colitis, unspecified (principal); E44.0 Moderate protein-calorie malnutrition; R10.9 Unspecified abdominal pain; E03.9 Hypothyroidism, unspecified; Z90.49 Acquired absence of other specified parts of digestive tract; F41.9 Anxiety disorder, unspecified; K21.9 Gastro-esophageal reflux disease without esophagitis; K57.90 Diverticulosis of intestine, part unspecified, without perforation or abscess without bleeding; M19.90 Unspecified osteoarthritis, unspecified site
CPT/HCPCS: 36415; 80053; 85025; J1644; J2405; J7120; G0378